=== PATIENT | female | born 1960 | race Caucasian/White ===

== ENCOUNTER → 2016-12-31 | Outpatient (CLI) | payer MEDICARE ==
[~2016-12-31] MED LIST: AMIT10TA PO; ASPI-621 PO; ATOR10TA PO; CAPT12.52 PO; CLOP75TA52 PO; ESCI5TAB7 PO; ESTR0.45 PO; LIBRIUM; LORA-446 PO; METF10002 PO; METH5TAB2 PO; METO25TA91 PO; PANT20TA2 PO; SPIR25TA PO
== END | disposition home or self-care (01) ==
LOC: CFH 15:28
PROVIDERS: ATTEND Physician Assistant Medical
DX: I35.1 Nonrheumatic aortic (valve) insufficiency (principal); R53.83 Other fatigue
CPT/HCPCS: 93306

== ENCOUNTER → 2018-01-29 | Outpatient (CLI) | payer MEDICARE | END | disposition home or self-care (01) | LOC: CFH 12:52 | PROVIDERS: ATTEND Internal Medicine | DX: I35.1 Nonrheumatic aortic (valve) insufficiency (principal); I10 Essential (primary) hypertension; E78.5 Hyperlipidemia, unspecified; I51.81 Takotsubo syndrome | CPT/HCPCS: 93306 ==

== ENCOUNTER → 2019-11-20 | Outpatient (CLI) | payer MEDICARE ==
[~2019-11-20] MED LIST changes: -ASPI-621 PO; +ASPI81TA45 PO
== END | disposition home or self-care (01) ==
LOC: CFH 15:49
PROVIDERS: ATTEND Internal Medicine
DX: I35.1 Nonrheumatic aortic (valve) insufficiency (principal); E78.5 Hyperlipidemia, unspecified; E11.9 Type 2 diabetes mellitus without complications; Z87.891 Personal history of nicotine dependence
CPT/HCPCS: 93306